=== PATIENT | male | born 1975 ===

== ENCOUNTER 2017-08-01 21:30 | Emergency (ER) | payer SELFPAY ==
[~2017-08-01] VITALS: Ht 172.7 cm; Wt 114.3 kg
[2017-08-01 21:35] VITALS: BP 159/96
== END 2017-08-02 01:43 | disposition left against medical advice (07) ==
LOC: ER 21:30
DX: H57.12 Ocular pain, left eye (principal); Z53.21 Procedure and treatment not carried out due to patient leaving prior to being seen by health care provider